=== PATIENT | male | born 1960 | race Caucasian/White ===

== ENCOUNTER 2019-10-29 16:39 | Emergency (ER) | payer SELFPAY ==
[~2019-10-29] VITALS: Ht 180.3 cm; Wt 92.8 kg
--- NOTE | 2019-10-29 18:41 | ED Upper Extremity ---
General Chief Complaint: Laceration Stated Complaint: LT THUMB LAC Source: patient History of Present Illness Date Seen by Provider: Oct 29, 2019 Time Seen by Provider: 18:00 Initial Comments cut to left thumb w (new) utility knife. NO other injury or complaint Allergies and Home Medications Patient Home Medication List Home Medication List Reviewed: Yes Review of Systems Constitutional: no symptoms reported Musculoskeletal: other (left thumb pain/ injury) Skin: other (as above- laceration thumb) Psychiatric/Neurological: Denies Numbness, Denies Paresthesia Past Ddghgge-Cafjal-Dwlhha Hx Past Med/Social Hx: Reviewed Nursing Past Med/Soc Hx Patient Social History Recent Foreign Travel: No Physical Exam Vital Signs Capillary Refill : Height, Weight, BMI Height: '" Weight: lbs. oz. kg; BMI Method: General Appearance: WD/WN, no apparent distress Hand: normal ROM, Left Skin: other (2cm lac distal left thumb) Procedures/Interventions Wound Location: Upper Extremities (left thumb- distal) Wound Length (cm): 2 Wound's Depth, Shape: linear Wound Explored: clean Anesthesia: 0.5% Sensorcaine Suture: Monocryl Suture Size: 3-0 Number of Sutures: 3 Sterile Dressing Applied?: Yes Departure Impression Primary Impression: Laceration of thumb Qualified Codes: S61.012A - Laceration without foreign body of left thumb without damage to nail, initial encounter Disposition: 01 HOME, SELF-CARE Condition: Improved Departure-Patient Inst. Decision time for Depature: 18:40 Referrals: NO,LOCAL PHYSICIAN (PCP/Family) Primary Care Physician Patient Instructions: Laceration Repair With Stitches (DC) Add. Discharge Instructions: All discharge instructions reviewed with patient and/or family. Voiced understanding. See your PCP to remove stitches in 10 days FELICIA STRANGE DO Oct 29, 2019 18:41 POS
[2019-10-29] MEDS ORDERED: TETANUS,DIPTH,PERTUSS P/F (BOOSTRIX) 0.5 ML VIAL IM ONE (18:45)
[2019-10-29 18:55] VITALS: BP 147/65
== END 2019-10-29 18:53 | disposition home or self-care (01) ==
LOC: EDUNIT# 16:39 → ER FS 16:40
DX: S61.012A Laceration without foreign body of left thumb without damage to nail, initial encounter (principal); W26.0XXA Contact with knife, initial encounter
CPT/HCPCS: 12001; 90471; 90715

== ENCOUNTER → 2020-07-30 | Outpatient (CLI) | payer MEDICAID ==
--- NOTE | 2020-07-30 15:25 | Diagnostic Imaging Report ---
INDICATION: Right hand pain. COMPARISON: None. FINDINGS: Four views of the right hand were obtained and show no fractures, dislocations, or other acute bony abnormalities. Mild osteoarthritic changes are noted. Joint spaces are well maintained throughout. The soft tissues appear unremarkable. No radiopaque foreign bodies are identified. IMPRESSION: Mild osteoarthritis of the right hand, but no evidence of acute fracture or dislocation. Dictated by: Dictated on workstation # [id number]
== END ==
LOC: RAD FS 14:54
PROVIDERS: ATTEND Nurse Practitioner
DX: M19.041 Primary osteoarthritis, right hand (principal)

== ENCOUNTER 2021-02-16 08:07 | Outpatient (CLI) | payer MEDICAID ==
[~2021-02-16] VITALS: Ht 177.8 cm; Wt 90.9 kg
== END 2021-02-16 15:59 | disposition home or self-care (01) ==
LOC: PREOP 08:07
PROVIDERS: ATTEND Specialist
DX: Z01.818 Encounter for other preprocedural examination (principal)

== ENCOUNTER 2021-02-20 10:25 | Day surgery (SDC) | payer MEDICAID ==
[~2021-02-20] VITALS: Ht 177.8 cm; Wt 90.9 kg
[2021-02-20] MEDS: TETRACAINE 0.5% OPHTH SOLN 4 ML BTL (SINGLE DOSE ONLY) OU PRN ×4 (10:37→10:53)
[2021-02-20] MEDS: TROPICAMIDE 1% OPH SOLN (MYDRIACYL) 15 ML BTL OP SCH ×3 (10:43→10:53)
[2021-02-20] MEDS: PHENYLEPHRINE 10% OPHTH (NEO-SYN) 5 ML BTL OU SCH ×3 (10:43→10:53)
[2021-02-20] MEDS ORDERED: POVIDONE (BETADINE) OPHTH SOLN 5% 30 ML OP ONE (10:45)
[2021-02-20] MEDS ORDERED: TIMOLOL MALEATE 0.5% 5 ML (TIMOPTIC) BTL OU PRN (10:45)
[2021-02-20] MEDS ORDERED: LIDOCAINE PF 1% 2 ML VIAL IR PRN (10:45)
[2021-02-20] MEDS ORDERED: MOXIFLOXACIN OPHTH SOLN 5 MG/ML 0.3 ML SYRINGE OP ONE (10:45)
[2021-02-20] MEDS ORDERED: MIDAZOLAM 2 MG/2 ML (VERSED) VIAL ONE (10:55)
[2021-02-20 10:57] VITALS: BP 138/76
--- NOTE | 2021-02-20 11:15 | Ophthalmologist Pre-Op Note ---
Pre-Operative Progress Note H&P Reviewed The H&P was reviewed, patient examined and no changes noted. Date H&P Reviewed: Feb 20, 2021 Time H&P Reviewed: 11:15 Pre-Op Dx Cataract, Right Eye CATHI DAVILA MD Feb 20, 2021 11:15
--- NOTE | 2021-02-20 11:38 | Ophthalmology Operative Report ---
Cataract removal/placement IOL PREOPERATIVE DIAGNOSIS: Cataract Right Eye POSTOPERATIVE DIAGNOSIS: Cataract Right Eye PROCEDURE: Cataract removal and placement of posterior chamber implant, right eye SURGEON: Ildefonso Davila ANESTHESIA: Topical with sedation COMPLICATIONS: None ESTIMATED BLOOD LOSS: Minimal DESCRIPTION OF PROCEDURE: After proper informed consent was obtained, the patient, a 60 male, was taken to the Operating Room and the right eye was anesthetized with tetracaine. The right eye was then prepped and draped in the usual manner. A wire lid speculum was placed. A paracentesis was made at the left hand position. Preservative free lidocaine was injected into the anterior chamber followed by viscoelastic. A clear corneal incision was made in the temporal position. A capsulorrhexis was preformed and the central nuclear and cortical material were removed. The posterior capsule was polished and Srinivasa AU00T0 20.5 IOL was placed into the capsular bag. The residual viscoelastic was aspirated and balanced saline solution was injected into the anterior chamber. Moxifloxacin was injected into the anterior chamber. The wound was checked and found to be water tight. The patient tolerated the procedure well without complications. ILDEFONSO DAVILA MD Feb 20, 2021 11:38
[2021-02-20 11:42] VITALS: BP 128/77
[2021-02-20] MEDS ORDERED: acetaZOLAMIDE ER 500 MG CAP (DIAMOX SEQUELS) PO ONE (12:00)
--- NOTE | 2021-02-20 12:23 | Anesthesia-General Post-Op ---
MAC Patient Condition Mental Status/LOC: Same as Preop Cardiovascular: Satisfactory Nausea/Vomiting: Absent Respiratory: Satisfactory Pain: Controlled Complications: Absent Post Op Complications Complications None Follow Up Care/Instructions Patient Instructions None needed. Anesthesiology Discharge Order Discharge Order Patient is doing well, no complaints, stable vital signs, no apparent adverse anesthesia problems. No complications reported per nursing. LOULOU GUNTER CRNA Feb 20, 2021 12:23
== END 2021-02-20 11:43 | disposition home or self-care (01) ==
LOC: SDC 10:25
PROVIDERS: ATTEND Specialist
DX: H25.11 Age-related nuclear cataract, right eye (principal); F41.9 Anxiety disorder, unspecified; F32.9 Major depressive disorder, single episode, unspecified; G62.9 Polyneuropathy, unspecified; G47.00 Insomnia, unspecified; F17.210 Nicotine dependence, cigarettes, uncomplicated; Z79.899 Other long term (current) drug therapy
CPT/HCPCS: 66984; V2632

== ENCOUNTER 2021-03-11 06:59 | Outpatient (CLI) | payer MEDICAID ==
[~2021-03-11] VITALS: Ht 177.8 cm; Wt 90.9 kg
== END 2021-03-11 14:22 | disposition home or self-care (01) ==
LOC: PREOP 06:59
PROVIDERS: ATTEND Surgery
DX: Z01.818 Encounter for other preprocedural examination (principal)

== ENCOUNTER 2021-03-18 07:30 | Day surgery (SDC) | payer MEDICAID ==
[2021-03-18] VITALS (8 sets, daily range): BP systolic 100–186; BP diastolic 61–94
[~2021-03-18] VITALS: Ht 177.8 cm; Wt 90.9 kg
[2021-03-18] MEDS ORDERED: LACTATED RINGERS 1,000 ML IV PRN (07:45)
[2021-03-18] MEDS ORDERED: ceFAZolin INJECTION 1,000 MG in WATER (STERILE) FOR INJECTION 10 ML IV ONE (07:45)
--- NOTE | 2021-03-18 08:07 | Progress Note-Pre Operative ---
Pre-Operative Progress Note H&P Reviewed The H&P was reviewed, patient examined and no changes noted. Time Seen by Provider: 08:03 Date H&P Reviewed: Mar 18, 2021 Time H&P Reviewed: 08:03 Pre-Operative Diagnosis: Anal warts ALFONSO NORRIS DO Mar 18, 2021 08:07
[2021-03-18] MEDS ORDERED: proPOfol 200 MG/20 ML (DIPRIVAN) VIAL IV ONE ×2 (08:10→09:23)
[2021-03-18] MEDS ORDERED: SEVOFLURANE (ULTANE) 15 ML INHAL SOLN ONE ×2 (08:10→09:24)
[2021-03-18] MEDS ORDERED: MIDAZOLAM 2 MG/2 ML (VERSED) VIAL ONE (08:10)
[2021-03-18] MEDS ORDERED: LIDOCAINE PF 2% 5 ML (XYLOCAINE) VIAL ONE (08:11)
[2021-03-18] MEDS ORDERED: ONDANSETRON 4 MG/2 ML (SDV) Z0FRAN ONE (08:11)
[2021-03-18] MEDS ORDERED: fentaNYL INJ 100 MCG/2 ML AMP ONE ×2 (08:11→09:17)
[2021-03-18] MEDS ORDERED: LIDOCAINE/EPI 1%-1:100,000 (XYLOCAINE) 20ML ONE (09:06)
[2021-03-18] MEDS ORDERED: GLYCOPYRROLATE 0.2 MG/ML (ROBINUL) 2 ML VIAL ONE (09:09)
--- NOTE | 2021-03-18 09:30 | Progress Note-Post Operative ---
Post-Operative Progess Note Surgeon (s)/Meteorologist Liaison (s) Surgeon ALFONSO NORRIS DO Meteorologist Liaison: ANAIS Bazan Pre-Operative Diagnosis Anal warts Post-Operative Diagnosis same pendinght path Procedure & Operative Findings Date of Procedure 03/18/21 Procedure Performed/Findings Exc anal warts CARLITOS under anesthesia Anesthesia Type LMA Estimated Blood Loss Estimated blood loss (mL): scant Specimens/Packing Specimens Removed anal warts ALFONSO NORRIS DO Mar 18, 2021 09:30
--- NOTE | 2021-03-18 09:32 | Discharge Inst-Surgical ---
Discharge Inst-Surgical Depart Medication/Instructions New, Converted or Re-Newed RX: Other (use ibuprofen or tylenol for pain, can buy cream with lidocaine to place around anus) Patient Instructions Follow up Appt: Make appointment for 1 week. [phone] Instructions: No lifting greater than 20 pounds. No strenuous activity. May shower in 24 hours, no tub bath or soaking. Use incentive spirometer at home as directed. No Smoking Skin/Wound Care: Sitz baths and gentle wiping after having BM Symptoms to Report: Appetite Changes, Extremity Discoloration, Numbness/Tingling, Swelling Increased, Bleeding Excessive, Eyesight Changes, Pain Increased, Urine Color Change, Constipation(Persistent), Fever over 101 degree F, Pain/Pressure in chest, Urinating Difficulty, Cough Up/Vomit Blood, Heart Beat Irreg/Pounding, Pain/Pressure in jaw, Cramps in feet or legs, Lightheadedness, Pain/Pressure in shoulder, Diarrhea(Persistent), Memory Changes Suddenly, Questions/Concerns, Weight gain consecutive days, Dizziness/Fainting, Nausea/Vomiting, Shortness of Breath, Weight gain over 2 pounds If questions or concerns contact your physician Or seek help at emergency department. Activity Activity as Tolerated: Yes Activity Instructions: Avoid Stress to Incision Diet Discharge Diet: No Restrictions (increased fluids) Diet After 24 Hours: Clear Liquid if Nauseous If Any Problems/Questions/Issu: Contact Your Physician, Go to Emergency Room Skin/Wound Care Infection Signs and Symptoms: Increased Redness, Foul Odor of Wound, Increased Drainage, Skin Itchy or Has a Rash, Increased Swelling, Temperature Above 101 F Bathing Instructions: Shower Stitches/Daina/Dermabond Dis: Care of Stitches ALFONSO NORRIS DO Mar 18, 2021 09:32
[2021-03-18] MEDS ORDERED: MEPERIDINE (DEMEROL) INJ 50 MG/ML IVP ONE (09:45)
[2021-03-18] MEDS ORDERED: morphine INJ 10 MG/ML 1ML (SYR OR VIAL) IVP ONE (09:45)
[2021-03-18] MEDS ORDERED: ONDANSETRON 4 MG/2 ML (SDV) Z0FRAN IVP PRN (09:45)
--- NOTE | 2021-03-18 11:10 | Anesthesia-General Post-Op ---
General Patient Condition Mental Status/LOC: Same as Preop Cardiovascular: Satisfactory Nausea/Vomiting: Absent Respiratory: Satisfactory Pain: Controlled Complications: Absent Post Op Complications Complications None Follow Up Care/Instructions Patient Instructions None needed. Anesthesia/Patient Condition Patient Condition Patient is doing well, no complaints, stable vital signs, no apparent adverse anesthesia problems. No complications reported per nursing. MOY MENESES CRNA Mar 18, 2021 11:10
--- NOTE | 2021-03-18 16:55 | OPERATIVE REPORT ---
DATE OF SERVICE: PREOPERATIVE DIAGNOSIS: Anal warts. POSTOPERATIVE DIAGNOSIS: Anal warts. PROCEDURES: 1. Excision of anal warts. 2. Digital rectal exam under anesthesia. SURGEON: Cristopher Lobato DO SCAGLIOLA MECHANIC: Tk Cazares, 3. ANESTHESIA: LMA. SPECIMEN: Anal warts. BLOOD LOSS: Scant. FLUIDS: Per anesthesia. POSTOPERATIVE CONDITION: Stable. INDICATION FOR PROCEDURE: The patient is a 60-year-old male who had some anal warts and wants to get them removed. FINDINGS: The patient had anal warts, one small at about a centimeter at the 3 o'clock position. He had a large cluster at the 6 o'clock position and then another large cluster at the 7 o'clock position. PROCEDURE NOTE: After informed consent was obtained, the patient was brought to the operating room, placed on the table in lithotomy position, sterilely prepped and draped in normal fashion. Then used local lidocaine to perform ischial tuberosity block as well as a regional block and then blocking at the anal sphincter grasp. Started with the wart at 3 o'clock, grasped this and then cut under it on the skin with Bovie electrocautery, passed this off table, then started with the wart at 7 o'clock, cut through the skin. This were measured about 2-3 cm long x about 1.5 cm wide and cut off under this at the base, taking the skin and some subcutaneous tissue, passed this off table and there was another cluster warts a little bit longer at the 6 o'clock position. These were also grasped and cut off with the Bovie electrocautery. Once this was done, then did a digital rectal exam, did not feel any warts on the inside, used the speculum, did not see any warts. I did have some fecal material and at this point, then elected to close the 2 larger incisions under the 6 and 7 o'clock area, closed with a 2-0 chromic two interrupted sutures to close each incision. Area was cleaned and dried, dressings placed. The patient tolerated the procedure. Sponge and needle count correct at the end of the case. Job ID: [id number] DocumentID: [id number] Dictated Date: 03/18/2021 09:36:21 Development And Planning Engineer Date: 03/18/2021 16:55:07 Dictated By: CRISTOPHER LOBATO DO [facility]
== END 2021-03-18 11:10 | disposition home or self-care (01) ==
LOC: SDC 07:30
PROVIDERS: ATTEND Surgery
DX: A63.0 Anogenital (venereal) warts (principal); K62.82 Dysplasia of anus; A51.31 Condyloma latum; E66.9 Obesity, unspecified; Z68.28 Body mass index [BMI] 28.0-28.9, adult; Z79.899 Other long term (current) drug therapy
CPT/HCPCS: 87081; 88305

== ENCOUNTER → 2021-09-14 | Outpatient (CLI) | payer MEDICAID ==
[~2021-09-14] VITALS: Ht 177.8 cm; Wt 83.3 kg
[~2021-09-14] MED LIST: MULT-1061 PO
== END | disposition home or self-care (01) ==
LOC: PREOP 05:49
PROVIDERS: ATTEND Surgery
DX: Z01.818 Encounter for other preprocedural examination (principal)

== ENCOUNTER 2021-09-21 09:07 | Day surgery (SDC) | payer MEDICAID ==
[~2021-09-21] VITALS: Ht 177.8 cm; Wt 83.3 kg
[2021-09-21] MEDS ORDERED: LACTATED RINGERS 1,000 ML IV STA (09:27)
--- NOTE | 2021-09-21 09:31 | Progress Note-Pre Operative ---
Pre-Operative Progress Note H&P Reviewed The H&P was reviewed, patient examined and no changes noted. Time Seen by Provider: : Date H&P Reviewed: Sep 21, 2021 Time H&P Reviewed: : Pre-Operative Diagnosis: Screening colon ALFONSO NORRIS DO Sep 21, 2021 09:31
[2021-09-21] MEDS ORDERED: LACTATED RINGERS 1,000 ML IV ONE (09:32)
[2021-09-21 09:37] VITALS: BP 167/93
[2021-09-21] MEDS ORDERED: MIDAZOLAM 2 MG/2 ML (VERSED) VIAL ONE (10:55)
[2021-09-21] MEDS ORDERED: PROPOFOL INJECTION 0 ML IV ONE (10:55)
[2021-09-21] MEDS ORDERED: GLYCOPYRROLATE 0.2 MG/ML (ROBINUL) 2 ML VIAL ONE (10:58)
[2021-09-21] MEDS ORDERED: LABETALOL HCL 20 MG/4 ML VIAL ONE (11:13)
[2021-09-21] MEDS ORDERED: PROPOFOL INJECTION 50 ML IV ONE (11:13)
[2021-09-21 11:25] VITALS: BP 191/93
[2021-09-21 11:30] VITALS: BP_SYST 190; BP_SYST 204; BP_DIAS 93
--- NOTE | 2021-09-21 11:30 | Endoscopy Discharge Instruct ---
Endo Procedure/Findings Findings 1.: Polyp 2.: Internal Hemorrhoids Discharge Instructions - Activity: You might feel a little sleepy until tomorrow. This is due to the medicine you received to relax you. Until tomorrow, you should: NOT drive a car, operate machinery or power tools. NOT drink any alcoholic beverages. NOT make any important decisions or sign importortant papers. Do not return to work until tomorrow, unless otherwise instructed. Resume previous activities tomorrow. Diet: Start by taking liquids. If you tolerate liquids, advance to solid food. 1.: Colonscopy in 3 years Notify Physician - If you experience excessive bleeding, unusual abdominal pain, fever, or chest pain, contact your doctor immediately. ALFONSO NORRIS DO Sep 21, 2021 11:30
--- NOTE | 2021-09-21 11:30 | Progress Note-Post Operative ---
Post-Operative Progess Note Surgeon (s)/Assistant Hvac Mechanic (s) Surgeon ALFONSO NORRIS DO Assistant Hvac Mechanic: none Pre-Operative Diagnosis Screening colon Post-Operative Diagnosis Polyps int hemorrhoids Procedure & Operative Findings Date of Procedure 09/21/21 Procedure Performed/Findings Colonoscopy with hot bx PROCEDURE NOTE: After informed consent was obtained, the patient was brought to the endoscopy suite, placed in bed in left lateral decubitus position. He was administered IV sedation by the HOME RESTORATION SERVICE CLEANER who then monitored his vitals the entire time, heart rate, blood pressure and pulse ox and the scope was inserted, pushed all the way to about 150 cm and pushed into the cecum. When I took a picture of appendiceal orifice I noted a polyp and then did a hot biopsy of it. In the cecum was another large, flat polyp; I did two biopsies of but unable to get all of it. Noted the ileo-cecal valve and slowly withdrew the scope insufflating to look circumferentially at the gan starting in the cecum, up the ascending colon to the hepatic flexure, then down the transverse colon, splenic flexure, into the descending colon down and finally into the sigmoid Found another polyp here and did another hot biopsy and then into the rectal vault. Found two more polyps and did hot biopsies. Finally retroflexed the scope. Took a picture of the internal hemorrhoids. The patient tolerated the procedure. He was recovered in endoscopy suite. Anesthesia Type IV sedation by HOME RESTORATION SERVICE CLEANER Estimated Blood Loss Estimated blood loss (mL): scant Specimens/Packing Specimens Removed appendiceal orifice polyp bx cecal polyp bx sigmoid polyp rectal polyp x2 ALFONSO NORRIS DO Sep 21, 2021 11:30
[2021-09-21 12:00] VITALS: BP 148/83
[2021-09-21 12:01] VITALS: BP 148/83
--- NOTE | 2021-09-21 13:22 | Anesthesia-General Post-Op ---
MAC Patient Condition Mental Status/LOC: Same as Preop Cardiovascular: Satisfactory Nausea/Vomiting: Absent Respiratory: Satisfactory Pain: Controlled Complications: Absent Post Op Complications Complications None Follow Up Care/Instructions Patient Instructions None needed. Anesthesiology Discharge Order Discharge Order Patient is doing well, no complaints, stable vital signs, no apparent adverse anesthesia problems. No complications reported per nursing. ÁLVARO GUTIERRES CRNA Sep 21, 2021 13:22
== END 2021-09-21 12:05 | disposition home or self-care (01) ==
LOC: ENDO 09:07
PROVIDERS: ATTEND Surgery
DX: Z12.11 Encounter for screening for malignant neoplasm of colon (principal); D12.0 Benign neoplasm of cecum; K62.1 Rectal polyp; K64.8 Other hemorrhoids; F17.200 Nicotine dependence, unspecified, uncomplicated; Z85.048 Personal history of other malignant neoplasm of rectum, rectosigmoid junction, and anus; Z79.899 Other long term (current) drug therapy

== ENCOUNTER 2022-06-15 05:38 | Outpatient (CLI) | payer MEDICAID ==
[~2022-06-15] VITALS: Ht 177.8 cm; Wt 88.6 kg
== END 2022-06-15 14:57 | disposition home or self-care (01) ==
LOC: PREOP 05:38
PROVIDERS: ATTEND Specialist
DX: Z01.818 Encounter for other preprocedural examination (principal)

== ENCOUNTER 2022-06-18 08:14 | Day surgery (SDC) | payer MEDICAID ==
[~2022-06-18] VITALS: Ht 177.8 cm; Wt 88.6 kg
[2022-06-18 08:19] VITALS: BP 124/83
[2022-06-18] MEDS ORDERED: acetaZOLAMIDE ER 500 MG CAP (DIAMOX SEQUELS) PO ONE (08:30)
[2022-06-18] MEDS: TETRACAINE 0.5% OPHTH SOLN 4 ML BTL (SINGLE DOSE ONLY) OU PRN ×4 (08:30→08:46)
[2022-06-18] MEDS ORDERED: POVIDONE (BETADINE) OPHTH SOLN 5% 30 ML OP ONE (08:30)
[2022-06-18] MEDS ORDERED: TIMOLOL MALEATE 0.5% 5 ML (TIMOPTIC) BTL OU PRN (08:30)
[2022-06-18] MEDS ORDERED: MOXIFLOXACIN OPHTH SOLN 5 MG/ML 0.3 ML SYRINGE OP ONE (08:30)
[2022-06-18] MEDS: PHENYLEPHRINE 10% OPHTH (NEO-SYN) 5 ML BTL OU SCH ×3 (08:37→08:46)
[2022-06-18] MEDS: TROPICAMIDE 1% OPH SOLN (MYDRIACYL) 15 ML BTL OP SCH ×3 (08:37→08:46)
--- NOTE | 2022-06-18 08:50 | Ophthalmologist Pre-Op Note ---
Pre-Operative Progress Note H&P Reviewed The H&P was reviewed, patient examined and no changes noted. Date H&P Reviewed: Jun 18, 2022 Time H&P Reviewed: 08:50 Pre-Op Dx Cataract, Left Eye CATHI DAVILA MD Jun 18, 2022 08:50
[2022-06-18] MEDS ORDERED: MIDAZOLAM 2 MG/2 ML (VERSED) VIAL ONE (08:57)
--- NOTE | 2022-06-18 09:13 | Ophthalmology Operative Report ---
Cataract removal/placement IOL PREOPERATIVE DIAGNOSIS: Cataract Left Eye POSTOPERATIVE DIAGNOSIS: Cataract Left Eye PROCEDURE: Cataract removal and placement of posterior chamber implant, left eye SURGEON: Ildefonso Davila ANESTHESIA: Topical with sedation COMPLICATIONS: None ESTIMATED BLOOD LOSS: Minimal DESCRIPTION OF PROCEDURE: After proper informed consent was obtained, the patient, a 62 male, was taken to the Operating Room and the left eye was anesthetized with tetracaine. The left eye was then prepped and draped in the usual manner. A wire lid speculum was placed. A paracentesis was made at the left hand position. Preservative free lidocaine was injected into the anterior chamber followed by viscoelastic. A clear corneal incision was made in the temporal position. A capsulorrhexis was preformed and the central nuclear and cortical material were removed. The posterior capsule was polished and an Srinivasa 22.0 AU00T0 was placed into the capsular bag. The residual viscoelastic was aspirated and balanced saline solution was injected into the anterior chamber. Moxifloxacin was injected into the anterior chamber. The wound was checked and found to be water tight. The patient tolerated the procedure well without complications. ILDEFONSO DAVILA MD Jun 18, 2022 09:13
[2022-06-18 09:22] VITALS: BP 154/83
--- NOTE | 2022-06-18 13:05 | Anesthesia-General Post-Op ---
MAC Patient Condition Mental Status/LOC: Same as Preop Cardiovascular: Satisfactory Nausea/Vomiting: Absent Respiratory: Satisfactory Pain: Controlled Complications: Absent Post Op Complications Complications None Follow Up Care/Instructions Patient Instructions None needed. Anesthesiology Discharge Order Discharge Order Patient is doing well, no complaints, stable vital signs, no apparent adverse anesthesia problems. No complications reported per nursing. ÁLVARO GUTIERRES CRNA Jun 18, 2022 13:04
== END 2022-06-18 09:24 | disposition home or self-care (01) ==
LOC: SDC 08:14
PROVIDERS: ATTEND Specialist
DX: H25.9 Unspecified age-related cataract (principal); F17.290 Nicotine dependence, other tobacco product, uncomplicated
CPT/HCPCS: 66984; V2632